=== PATIENT | female | born 1960 | race Caucasian/White ===

== ENCOUNTER → 2017-03-17 | Outpatient (CLI) | payer BC ==
[~2017-03-17] MED LIST: BENADRYL50 MG PO; PEPCID20 MG PO; PREDNISONE20 MG PO
== END | disposition home or self-care (01) ==
LOC: CDC 11:48
DX: M25.561 Pain in right knee (principal); R94.31 Abnormal electrocardiogram [ECG] [EKG]
CPT/HCPCS: 93000